=== PATIENT | female | born 1940 ===

== ENCOUNTER 2018-06-09 16:50 | Emergency (ER) | payer MEDICARE ==
[2018-06-09 16:50] VITALS: BMI 24.0
[2018-06-09 17:35] VITALS: TEMP 98.2; O2SAT 100
--- NOTE | 2018-06-09 19:02 | ED PDOC ---
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 She reports associated pain and swelling when ambulating. Otherwise: (-) ankle injury, (-) medication for relief, (-) calf pain, (-) shortness of breath, (-) cough, (-) chest pain, (-) fever, (-) chills , or (-) recent falls. PMD: Dr. Mann Past Medical History Reviewed: Historical Data, Nursing Documentation, Vital Signs Vital Signs: Last Vital Signs Temp 98.2 F 06/09/18 17:33 Pulse 76 06/09/18 17:33 Resp 18 06/09/18 17:33 BP 172/73 H 06/09/18 17:33 Pulse Ox 100 06/09/18 17:33 - Medical History PMH: CAD, Diabetes, HTN, Hypercholesterolemia Other PMH: PR - Surgical History Surgical History: Cholecystectomy Other surgeries: quadruple bypass - Family History Family History: States: Unknown Family Hx - Home Medications Home Medications: Ambulatory Orders Medication Instructions Recorded Aspirin 325 mg PO DAILY tab 11/25/16 Atorvastatin [Lipitor] 80 mg PO DAILY tab 11/25/16 Famotidine [Pepcid] 20 mg PO BID tab 11/25/16 GlipiZIDE SR [Glucotrol XL] 10 mg PO BRK tab 11/25/16 Insulin Detemir [Levemir] 6 units SC HS vial 11/25/16 Metoprolol Tartrate [Lopressor] 50 mg PO DAILY tab 11/25/16 Valsartan [Diovan] 320 mg PO DAILY tab 11/25/16 hydroCHLOROthiazide [Microzide] 12.5 mg PO DAILY cap 11/25/16 Acetaminophen [Acetaminophen 8 650 mg PO Q8 PRN #21 tablet.er 06/09/18 Hour] - Allergies Allergies/Adverse Reactions: Allergies Allergy/AdvReac Type Severity Reaction Status Date / Time iodine Allergy RASH Verified 06/09/18 17:33 Review of Systems ROS Statement: Except As Marked, All Systems Reviewed And Found Negative Constitutional: Negative for: Fever, Chills Cardiovascular: Negative for: Chest Pain Respiratory: Negative for: Cough, Shortness of Breath Musculoskeletal: Positive for: Foot Pain (left ankle with swelling). Negative for: Other (calf pain) Physical Exam - Reviewed Nursing Documentation Reviewed: Yes Vital Signs Reviewed: Yes - Physical Exam Comments: GENERAL APPEARANCE: Patient is awake, alert, oriented x 3, in no acute distress. SKIN: Warm, dry; (-) cyanosis. NECK: Supple, FROM LOWER EXTREMITY: effusion and tenderness of the lateral malleolus; (+) limited range of motion secondary to pain. (-) warmth (-) skin break (-) ecchymosis (-) erythema. Achilles tendon intact and nontender. (-) calf tenderness or (-) palpable cord. Sensation intact throughout. (-) distal NV deficit. CHEST AND RESPIRATORY: (-) rales, (-) rhonchi, (-) wheezes; breath sounds equal bilaterally. Respirations even and nonlabored. HEART AND CARDIOVASCULAR: (-) irregularity NEURO: Mental status as above. Speech clear, gait steady. (-) facial asymmetry ( -) aphasia - ECG O2 Sat by Pulse Oximetry: 100 (RA) Pulse Ox Interpretation: Normal Medical Decision Making Medical Decision Making: Initial Impression: Acute ankle pain and swelling Initial Plan: * Tylenol 650mg PO * XR ankle (left) * Re-evaluation Time: 1932 --XR left ankle interpreted by provider: osteoarthritis Patient notified A Radiologist will review the ED reading if any change in treatment is needed we will contact her. --Podiatry consult ordered. Time: 1957 --Discussed case with podiatry resident, Dr. Duane Sifuentes. He is agreeable to bedside evaluation. 2134 Per podiatry evaluation, patient to be discharged with follow up with Dr Walter and Dr Izaguirre in office. See consult note. Diagnosis per podiatry: PAD/ claudification pain. Repeat BP: 154/78 On re-evaluation, patient reports improvement of symptoms. On exam, patient remains AAOx3, in no acute distress. Neck is supple, lungs CTA, cardiac RRR, neuro exam shows no focal findings. VSS, stable for discharge. RICE encouraged. Diagnostic results d/w the patient in great detail. Dx of lower extremity pain, claudification d/w the patient. Based on history, exam and diagnostic results plan will be for discharge and outpatient follow up as directed. Advised to follow up with primary care physician / referred providers in 1-2 days without fail. Advised to take medication as prescribed. Return to the emergency room at any time for any new or worsening symptoms. Patient states she fully agrees with and understands discharge instructions. States that she agrees with the plan and disposition. Verbalized and repeated discharge instructions and plan. I have given the patient opportunity to ask any additional questions. Scribe Attestation: Documented by Venus Zavala, acting as a scribe for Melisa Nagel PA-C. Provider Scribe Attestation: All medical record entries made by the Scribe were at my direction and personally dictated by me. I have reviewed the chart and agree that the record accurately reflects my personal performance of the history, physical exam, medical decision making, and the department course for this patient. I have also personally directed, reviewed, and agree with the discharge instructions and disposition. Disposition - Clinical Impression Clinical Impression: Peripheral arterial disease, Lower extremity pain - Patient ED Disposition Is Patient to be Admitted: No Counseled Patient/Family Regarding: Studies Performed, Diagnosis, Need For Followup, Rx Given - Disposition Referrals: Gwyn Izaguirre MD [Staff Provider] - Matias Walter MD [Staff Provider] - Disposition: Routine/Home Disposition Time: 21:36 Condition: STABLE Additional Instructions: La atencin mdica de emergencia que recibi hoy estaba dirigida a juani sntomas agudos. Si le prescribieron algn medicamento, llnelo y tome segn las indicaciones. Juani sntomas pueden tardar varios doan en resolverse. Regrese al Departamento de Emergencia si juani sntomas empeoran, no mejoran o si tiene alg n otro problema. Comunquese con [place]ford mdico en 2 doan para nanci reevaluacin y seguimiento / o llame a salbador de los mdicos / clnicas a los que paul referido y que figura en el formulario de Informacin de visitas del paciente que se incluye en radford paquete de angel. Traiga todos los documentos que recibi al momento del angel junto con los medicamentos que est tomando en radford visita de seguimiento. Nuestro tratamiento no puede reemplazar la atencin mdica en curso por parte de un proveedor de atencin primaria (PCP) fuera del departamento de emergencias. Prescriptions: Acetaminophen [Acetaminophen 8 Hour] 650 mg PO Q8 PRN #21 tablet.er PRN Reason: Pain, Moderate (4-7) Instructions: Peripheral Artery Disease and Claudication, Peripheral Vascular ( Arterial) Disease (DC), Muscle and Bone Pain (DC) Forms: [employer] (Portuguese) Print Language: MALAWIAN - POA Present On Arrival: None
--- NOTE | 2018-06-09 20:36 | CP.PCM.CON ---
History of Present Illness - History of Present Illness History of Present Illness: Podiatry consult notes for attending Dr. Izaguirre: 77 y/o F patient with PMH of Coronary heart disease, DM and HTN seen and evaluated in the ED for pain in her left leg. Patient is AAO X 3 and setting comfortably in her chair.Patient states that the pain started 3 days ago. She states that the pain is in the back of her left leg and it goes all the way down. She states that the pain is cramping pain. Patient states that the pain increases when she walks more than one block. She states that the pain when it' s present 8/10 on VAS scale. Patient states that the pain is releived partially by rest. Patient denies any other pedal complaint at this time. Patient denies any recent F/N/V/C or SOB. PMH: Coronary heart disease, DM and HTN PSH: CABG. Allergies: Iodine. Social Hx: Denies smoking, ETOH use or illicit drug use. Review of Systems - Review of Systems Review of Systems: As per HPI. Past Patient History - Past Medical History & Family History Past Medical History?: Yes - Past Social History Smoking Status: Never Smoked - CARDIAC Hx Hypercholesterolemia: Yes Hx Hypertension: Yes - PULMONARY Hx Respiratory Disorders: Yes - NEUROLOGICAL Hx Neurological Disorder: No - HEENT Hx HEENT Problems: No - RENAL Hx Chronic Kidney Disease: No - ENDOCRINE/METABOLIC Hx Diabetes Mellitus Type 2: Yes - HEMATOLOGICAL/ONCOLOGICAL Hx Blood Disorders: No - INTEGUMENTARY Hx Dermatological Problems: No - MUSCULOSKELETAL/RHEUMATOLOGICAL Hx Musculoskeletal Disorders: No Hx Falls: No - GASTROINTESTINAL Hx Gastrointestinal Disorders: No - GENITOURINARY/GYNECOLOGICAL Hx Genitourinary Disorders: No - PSYCHIATRIC Hx Psychophysiologic Disorder: No Hx Substance Use: No - SURGICAL HISTORY Hx Cholecystectomy: Yes - ANESTHESIA Hx Anesthesia: Yes Hx Anesthesia Reactions: No Meds Allergies/Adverse Reactions: Allergies Allergy/AdvReac Type Severity Reaction Status Date / Time iodine Allergy RASH Verified 06/09/18 17:33 Physical Exam - Constitutional Appears: Well, Non-toxic, No Acute Distress - Head Exam Head Exam: ATRAUMATIC, NORMOCEPHALIC - Extremities Exam Additional comments: LE focused exam: Vasc: DP/PT faintly palpable 1/4 b/l. Cap refill delayed about 4 sec. toes looks reddish in color. Lateral malleolar edema noted b/l. Neuro: Gross and protective sesations are intact b/l. Derm: No open lesions, No clinical signs of active infection. B/L hallucal toe nails are dystrophic, discolored and thickened. MSK: Muscle power intact 5/5 in all groups b/l. Foot and ankle ROM are WNL b/l. pain on Squeezing the calf muscles b/l. - Neurological Exam Neurological exam: Alert, Oriented x3 - Psychiatric Exam Psychiatric exam: Normal Affect, Normal Mood Results - Vital Signs Recent Vital Signs: Last Vital Signs Temp 98.2 F 06/09/18 17:33 Pulse 76 06/09/18 17:33 Resp 18 06/09/18 17:33 BP 172/73 H 06/09/18 17:33 Pulse Ox 100 06/09/18 20:00 Assessment & Plan - Assessment and Plan (Free Text) Assessment: 77 Y/O F patient seen and evaluated in the ED for pain and claudications of the left leg Plan: Patient seen and evaluated in the ED. Plan discussed in details with attending Dr. Izaguirre. X-ray reviewed; No apparent osseous anomalies. Discussed with the patient that her problem is mainly vascular as she might has a problem in her blood flow to the LE. Discussed with the patient that she needs to F/U with vascular doctor. Patient advised to keep her legs in more dependent position to improve the blood flow to it. Patient referred to Dr. Trupti Walter for vascular evaluation and F/U. Patient advised to Check her feet every year as she is a diabetic. Patient expressed verbal understanding. Thank you for consulting podiatry service. - Date & Time Date: 06/09/18 Time: 20:35
[2018-06-09 21:44] VITALS: BP 154/78; PULSE 80; RESP 16
--- NOTE | 2018-06-10 08:53 | RAD ---
Date of service: 06/09/2018 PROCEDURE: Left Ankle Radiographs. HISTORY: joint pain/swelling (-) trauma COMPARISON: None FINDINGS: BONES: No acute fracture or destructive bony lesion identified. Old healed left 5th metatarsal diaphysis fracture not excluded. There is a likely accessory ossicle inferior to the medial malleolus bone old avulsion or chip fracture is not excluded either. JOINTS: Articular cortical sclerosis at the tibiotalar joint seen best in the lateral view with minimal anterior spurring prior of degenerative joint disease appears similar changes are present at the tarsal tarsal joints. Ankle mortise maintained. Talar dome intact SOFT TISSUES: There is a large plantar calcaneal spur identified. Mild anterior and lateral malleolar soft tissue edema identified. OTHER FINDINGS: None. IMPRESSION: No acute fracture or dislocation. Probable old healed fracture 5th metatarsal bone. Though degenerative changes midfoot hindfoot articulations. Large plantar calcaneal spur noted.
== END 2018-06-09 21:53 | disposition home or self-care (01) ==
LOC: H.ER 16:50
DX: I73.9 Peripheral vascular disease, unspecified (principal); E11.51 Type 2 diabetes mellitus with diabetic peripheral angiopathy without gangrene; Z79.4 Long term (current) use of insulin; Z95.1 Presence of aortocoronary bypass graft

== ENCOUNTER 2018-10-21 15:27 | Inpatient (IN) | payer MEDICARE ==
[2018-10-21 15:44] VITALS: BMI 27.1
[2018-10-21] MEDS ORDERED: Sodium Chloride 0.9% 1,000 ML IV STA (16:02)
--- NOTE | 2018-10-21 16:07 | ED PDOC ---
Syncope/Near Syncope/Dizziness Time Seen by Provider: 10/21/18 15:53 Chief Complaint (Nursing): Syncope Chief Complaint (Provider): Syncope History Per: Patient History/Exam Limitations: no limitations Onset/Duration Of Symptoms: Days (x 2) Number Of Syncopal Episodes: >3 (4) Associated Symptoms Preceding Syncopal Episode: Lightheadedness Additional Complaint(s): 78 year old female with a history of CAD s/p CABG, DM, HTN and hypercholesteremi a with four syncopal episodes in the last two days. All episodes were preceded by lightheadedness. Caregiver witnessed last episode and reports she slept for four hours afterwards. Denies headache, chest pain, palpitations, focal weakness and fever. PMD: Dr. Bassam Mann Past Medical History Reviewed: Historical Data, Nursing Documentation, Vital Signs Vital Signs: Last Vital Signs Temp 98.4 F 10/21/18 15:41 Pulse 69 10/21/18 15:41 Resp 16 10/21/18 15:41 BP 150/63 10/21/18 15:41 Pulse Ox 99 10/21/18 15:41 - Medical History PMH: CAD, Diabetes, HTN, Hypercholesterolemia Denies: Chronic Kidney Disease - Surgical History Surgical History: CABG, Cholecystectomy - Family History Family History: States: Unknown Family Hx - Home Medications Home Medications: Ambulatory Orders Medication Instructions Recorded Aspirin 325 mg PO DAILY tab 11/25/16 Atorvastatin [Lipitor] 80 mg PO DAILY tab 11/25/16 Famotidine [Pepcid] 20 mg PO BID tab 11/25/16 GlipiZIDE SR [Glucotrol XL] 10 mg PO BRK tab 11/25/16 Insulin Detemir [Levemir] 6 units SC HS vial 11/25/16 Metoprolol Tartrate [Lopressor] 50 mg PO DAILY tab 11/25/16 Valsartan [Diovan] 320 mg PO DAILY tab 11/25/16 hydroCHLOROthiazide [Microzide] 12.5 mg PO DAILY cap 11/25/16 Acetaminophen [Acetaminophen 8 650 mg PO Q8 PRN #21 tablet.er 06/09/18 Hour] - Allergies Allergies/Adverse Reactions: Allergies Allergy/AdvReac Type Severity Reaction Status Date / Time iodine Allergy RASH Verified 10/21/18 15:50 Review of Systems ROS Statement: Except As Marked, All Systems Reviewed And Found Negative Constitutional: Positive for: Other (4 syncopal episodes). Negative for: Fever, Weakness Cardiovascular: Negative for: Chest Pain, Palpitations Neurological: Negative for: Headache Physical Exam - Reviewed Nursing Documentation Reviewed: Yes Vital Signs Reviewed: Yes - Physical Exam Appears: Positive for: Non-toxic, No Acute Distress Head Exam: Positive for: ATRAUMATIC, NORMAL INSPECTION, NORMOCEPHALIC Skin: Positive for: Normal Color, Warm, Dry. Negative for: Rash Eye Exam: Positive for: EOMI, Normal appearance, PERRL Neck: Positive for: Normal, Painless ROM, Supple Cardiovascular/Chest: Positive for: Regular Rate, Rhythm. Negative for: Murmur Respiratory: Positive for: Normal Breath Sounds. Negative for: Respiratory Distress Gastrointestinal/Abdominal: Positive for: Normal Exam, Soft. Negative for: Tenderness Back: Positive for: Normal Inspection. Negative for: L CVA Tenderness, R CVA Tenderness Extremity: Positive for: Normal ROM (x 4). Negative for: Deformity Neurologic/Psych: Positive for: Alert, registration rep II-XII (intact), Oriented (x 3), Cerebellar Tests (negative), Gait (steady). Negative for: Motor/Sensory Deficits, Facial Droop - Laboratory Results Result Diagrams: 10/21/18 18:05 - ECG O2 Sat by Pulse Oximetry: 99 (RA) Pulse Ox Interpretation: Normal Medical Decision Making Medical Decision Makin:01 MDM: syncope given history of CAD and CABG will consider cardiac arrhythmia and OK Will obtain troponins, blood work and CT head Orders: --CT Head --CBC --CMP --Troponin --urine dip --EKG --Glucose POC --NS IV 16:59 CT Head FINDINGS: HEMORRHAGE: No intracranial hemorrhage. BRAIN: No mass effect or edema. No atrophy or chronic microvascular ischemic changes. VENTRICLES: Unremarkable. No hydrocephalus. CALVARIUM: Unremarkable. PARANASAL SINUSES: Unremarkable as visualized. No significant inflammatory changes. MASTOID AIR CELLS: Unremarkable as visualized. No inflammatory changes. OTHER FINDINGS: None. IMPRESSION: No evidence of acute intracranial hemorrhage mass effect or midline shift. -------- --------- Scribe Attestation: Documented by Billie Daigle acting as a scribe for Peter Kearney MD Provider Scribe Attestation: All medical record entries made by the Scribe were at my direction and personally dictated by me. I have reviewed the chart and agree that the record accurately reflects my personal performance of the history, physical exam, medical decision making, and the department course for this patient. I have also personally directed, reviewed, and agree with the discharge instructions and disposition. Disposition - Clinical Impression Clinical Impression: Syncope - Patient ED Disposition Is Patient to be Admitted: Yes - Disposition Disposition Time: 18:26 Condition: FAIR Forms: [employer] (Belarusian) - Pt Status Changed To: Hospital Disposition Of: Observation - POA Present On Arrival: None
--- NOTE | 2018-10-21 17:02 | CT ---
Date of service: 10/21/2018 PROCEDURE: CT HEAD WITHOUT CONTRAST. HISTORY: r/o bleed COMPARISON: Comparison is made with 11/23/2016 TECHNIQUE: Axial computed tomography images were obtained through the head/brain without intravenous contrast. Radiation dose: Total exam DLP = 873.52 mGy-cm. This CT exam was performed using one or more of the following dose reduction techniques: Automated exposure control, adjustment of the mA and/or kV according to patient size, and/or use of iterative reconstruction technique. FINDINGS: HEMORRHAGE: No intracranial hemorrhage. BRAIN: No mass effect or edema. No atrophy or chronic microvascular ischemic changes. VENTRICLES: Unremarkable. No hydrocephalus. CALVARIUM: Unremarkable. PARANASAL SINUSES: Unremarkable as visualized. No significant inflammatory changes. MASTOID AIR CELLS: Unremarkable as visualized. No inflammatory changes. OTHER FINDINGS: None. IMPRESSION: No evidence of acute intracranial hemorrhage mass effect or midline shift.
[2018-10-21 18:16] LABS: BASO # 0.1 K/uL (0.0-0.2); BASO % 1.1 % (0.0-2.0); EOS # 0.4 K/uL (0.0-0.7); EOS % 5.4 % (0.0-4.0); HEMOGLOBIN 13.2 g/dL (12.0-16.0); LYMPH # 2.4 K/uL (1.0-4.3); LYMPH % 32.7 % (20.0-40.0); MEAN CELL VOLUME 87.2 fl (81.0-99.0); MEAN CORPUSCULAR HGB CONC 34.4 g/dL (33.0-37.0); MEAN PLATELET VOLUME 8.1 fl (7.2-11.7); MONO # 0.5 K/uL (0.0-0.8); MONO % 6.6 % (0.0-10.0); NEUT % 54.2 % (50.0-75.0); RBC 4.41 Mil/uL (3.80-5.20); RED CELL DISTRIBUTION WIDTH 13.8 % (11.5-14.5); WHITE BLOOD COUNT 7.3 K/uL (4.8-10.8)
[2018-10-21 18:27] LABS: ALB/GLOB RATIO 1.4 (1.0-2.1); ALBUMIN 4.5 g/dL (3.5-5.0); BLOOD UREA NITROGEN 33 mg/dl (7-17); CALCIUM 10.7 mg/dL (8.4-10.2); GFR NON-AFRICAN AMERICAN 54
[2018-10-21 18:29] LABS: ALT/SGPT 24 U/L (9-52); AST/SGOT 34 U/L (14-36)
[2018-10-21] MEDS ORDERED: ACETAMINOPHEN 650 MG PO PRN (23:33)
[2018-10-22] MEDS ORDERED: Morphine 4 MG/ML VIAL IVP PRN (06:35)
[2018-10-22] MEDS ORDERED: Acetaminophen-Codeine 300/30 mg Tab PO PRN (06:35)
[2018-10-22] MEDS: Insulin Regular 100 units/ml SC SCH ×3 (06:55→16:57)
[2018-10-22 07:33] LABS: HEMOGLOBIN 12.5 g/dL (12.0-16.0); MEAN CELL VOLUME 86.7 fl (81.0-99.0); MEAN CORPUSCULAR HEMOGLOBIN 29.7 pg (27.0-31.0); MEAN CORPUSCULAR HGB CONC 34.3 g/dL (33.0-37.0); RBC 4.2 Mil/uL (3.80-5.20); RED CELL DISTRIBUTION WIDTH 14.1 % (11.5-14.5)
[2018-10-22 07:54] LABS: ALB/GLOB RATIO 1.5 (1.0-2.1); ALT/SGPT 28 U/L (9-52); AST/SGOT 28 U/L (14-36); BLOOD UREA NITROGEN 27 mg/dl (7-17); GFR NON-AFRICAN AMERICAN 54
--- NOTE | 2018-10-22 09:17 | CP.PCM.CON ---
History of Present Illness - History of Present Illness History of Present Illness: I was asked to see patient by Dr Dale patient was seen 10/22/17 0810 Patient is a 78 year old female with HTn, CAD s/p CABg who presents with syncope. She has noted dizziness and lighheadedness no troponin elevation thus far. recommend neuro work up. echo Past Patient History - Past Medical History & Family History Past Medical History?: Yes - Past Social History Smoking Status: Never Smoked - CARDIAC Hx Cardiac Disorders: Yes - PULMONARY Hx Respiratory Disorders: Yes - NEUROLOGICAL Hx Neurological Disorder: No - HEENT Hx HEENT Problems: No - RENAL Hx Chronic Kidney Disease: No - ENDOCRINE/METABOLIC Hx Diabetes Mellitus Type 2: Yes (CONTROLLED ON METFORMIN) - HEMATOLOGICAL/ONCOLOGICAL Hx Blood Disorders: No - INTEGUMENTARY Hx Dermatological Problems: No - MUSCULOSKELETAL/RHEUMATOLOGICAL Hx Musculoskeletal Disorders: No Hx Falls: No - GASTROINTESTINAL Hx Gastrointestinal Disorders: No - GENITOURINARY/GYNECOLOGICAL Hx Genitourinary Disorders: No - PSYCHIATRIC Hx Psychophysiologic Disorder: No Hx Substance Use: No - SURGICAL HISTORY Hx Cholecystectomy: Yes Hx Coronary Artery Bypass Graft: Yes - ANESTHESIA Hx Anesthesia: Yes Hx Anesthesia Reactions: No Meds Allergies/Adverse Reactions: Allergies Allergy/AdvReac Type Severity Reaction Status Date / Time iodine Allergy RASH Verified 10/21/18 15:50 - Medications Medications: Current Medications Acetaminophen (Tylenol 325mg Tab) 650 mg PO Q4 PRN PRN Reason: Pain, moderate (4-7) Acetaminophen (Tylenol 325mg Tab) 650 mg PO Q6 PRN PRN Reason: Pain, Mild (1-3) Acetaminophen/Codeine Phosphate (Tylenol/Codeine 300 Mg/30 Mg) 1 tab PO Q8 PRN PRN Reason: Pain, moderate (4-7) Aspirin (Aspirin) 325 mg PO DAILY [facility] Last Admin: 10/22/18 08:42 Dose: 325 mg Atorvastatin Calcium (Lipitor) 80 mg PO DAILY [facility] Last Admin: 10/22/18 08:39 Dose: 80 mg Famotidine (Pepcid) 20 mg PO BID [facility] Last Admin: 10/22/18 08:39 Dose: 20 mg Hydrochlorothiazide (Microzide) 12.5 mg PO DAILY [facility] Last Admin: 10/22/18 08:39 Dose: 12.5 mg Insulin Detemir (Levemir) 6 units SC [facility] Insulin Human Regular (Humulin R) 0 units SC ACHS [facility]; Protocol Last Admin: 10/22/18 06:55 Dose: Not Given Losartan Potassium (Cozaar) 100 mg PO DAILY [facility] Metoprolol Tartrate (Lopressor) 50 mg PO DAILY [facility] Last Admin: 10/22/18 08:42 Dose: 50 mg Morphine Sulfate (Morphine) 2 mg IVP Q6 PRN PRN Reason: Pain, severe (8-10) Valsartan (Diovan) 320 mg PO DAILY [facility] Results - Vital Signs Recent Vital Signs: Last Vital Signs Temp 98.0 F 10/22/18 07:41 Pulse 65 10/22/18 08:42 Resp 18 10/22/18 07:41 BP 181/66 H 10/22/18 08:42 Pulse Ox 99 10/22/18 07:41 - Labs Result Diagrams: 10/22/18 06:15 10/22/18 06:15 Labs: Laboratory Results - last 24 hr 10/21/18 10/21/18 10/21/18 15:50 18:05 18:05 WBC 7.3 RBC 4.41 Hgb 13.2 Hct 38.5 MCV 87.2 MCH 30.0 MCHC 34.4 RDW 13.8 Plt Count 265 MPV 8.1 Neut % (Auto) 54.2 Lymph % (Auto) 32.7 [place] % (Auto) 6.6 Eos % (Auto) 5.4 H Baso % (Auto) 1.1 Neut # (Auto) 4.0 Lymph # (Auto) 2.4 [place] # (Auto) 0.5 Eos # (Auto) 0.4 Baso # (Auto) 0.1 Sodium 140 Potassium 3.9 Chloride 99 Carbon Dioxide 30 Anion Gap 15 BUN 33 H Creatinine 1.0 Est GFR ( Amer) > 60 Est GFR (Non-Af Amer) 54 POC Glucose (mg/dL) 87 Random Glucose 56 L Calcium 10.7 H Total Bilirubin 0.5 AST 34 ALT 24 Alkaline Phosphatase 70 Troponin I < 0.0120 Total Protein 7.7 Albumin 4.5 Globulin 3.2 Albumin/Globulin Ratio 1.4 10/21/18 10/22/18 10/22/18 23:00 00:09 05:43 WBC RBC Hgb Hct MCV MCH MCHC RDW Plt Count MPV Neut % (Auto) Lymph % (Auto) [place] % (Auto) Eos % (Auto) Baso % (Auto) Neut # (Auto) Lymph # (Auto) [place] # (Auto) Eos # (Auto) Baso # (Auto) Sodium Potassium Chloride Carbon Dioxide Anion Gap BUN Creatinine Est GFR ( Amer) Est GFR (Non-Af Amer) POC Glucose (mg/dL) 48 L 99 43 L Random Glucose Calcium Total Bilirubin AST ALT Alkaline Phosphatase Troponin I Total Protein Albumin Globulin Albumin/Globulin Ratio 10/22/18 10/22/18 10/22/18 05:46 06:15 06:15 WBC 6.0 RBC 4.20 Hgb 12.5 Hct 36.4 MCV 86.7 MCH 29.7 MCHC 34.3 RDW 14.1 Plt Count 229 MPV Neut % (Auto) Lymph % (Auto) [place] % (Auto) Eos % (Auto) Baso % (Auto) Neut # (Auto) Lymph # (Auto) [place] # (Auto) Eos # (Auto) Baso # (Auto) Sodium 140 Potassium 3.4 L Chloride 94 L Carbon Dioxide 32 H Anion Gap 17 BUN 27 H Creatinine 1.0 Est GFR ( Amer) > 60 Est GFR (Non-Af Amer) 54 POC Glucose (mg/dL) 55 L Random Glucose 160 H Calcium 10.0 Total Bilirubin 0.5 AST 28 ALT 28 Alkaline Phosphatase 67 Troponin I < 0.0120 Total Protein 6.8 Albumin 4.0 Globulin 2.8 Albumin/Globulin Ratio 1.5 10/22/18 06:34 WBC RBC Hgb Hct MCV MCH MCHC RDW Plt Count MPV Neut % (Auto) Lymph % (Auto) [place] % (Auto) Eos % (Auto) Baso % (Auto) Neut # (Auto) Lymph # (Auto) [place] # (Auto) Eos # (Auto) Baso # (Auto) Sodium Potassium Chloride Carbon Dioxide Anion Gap BUN Creatinine Est GFR ( Amer) Est GFR (Non-Af Amer) POC Glucose (mg/dL) 134 H Random Glucose Calcium Total Bilirubin AST ALT Alkaline Phosphatase Troponin I Total Protein Albumin Globulin Albumin/Globulin Ratio
--- NOTE | 2018-10-22 09:17 | CP.PCM.CON ---
History of Present Illness - History of Present Illness History of Present Illness: I was asked to see patient by Dr Dale patient was seen 10/22/17 [id number] I was asked to evaluate patient by Dr Dale. Patient is a 78 year old female with CAD s/p CABG, HTN, hypercholesterolemia who presents with dizziness. The patient states symptoms began gradually over the last week. She developed progressive lighheadedness and syncope. She denies chest pain or palpitiatons. Review of Systems - Constitutional Constitutional: absent: As Per HPI, Anorexia, Chills, Daytime Sleepiness, Excessive Sweating, Fatigue, Fever, Frequent Falls, Headache, Increased Appetite, Lethargy, Malaise, Night Sweats, Snoring, Sleep Apnea, Weight Gain, Weight Loss, Weakness, Other - EENT Eyes: absent: As Per HPI, Blind Spots, Blurred Vision, Change in Vision, Decreased Night Vision, Diplopia, Discharge, Dry Eye, Exophthalmos, Floaters, Irritation, Itchy Eyes, Loss of Peripheral Vision, Pain, Photophobia, Requires Corrective Lenses, Sees Flashes, Spots in Vision, Tunnel Vision, Other Visual Disturbances, Loss of Vision, Other Ears: absent: As Per HPI, Decreased Hearing, Ear Discharge, Ear Pain, Tinnitus, Abnormal Hearing, Disequilibrium, Dizziness, Other Nose/Mouth/Throat: absent: As Per HPI, Epistaxis, Nasal Congestion, Nasal Discharge, Nasal Obstruction, Nasal Trauma, Nose Pain, Post Nasal Drip, Sinus Pain, Sinus Pressure, Bleeding Gums, Change in Voice, Dental Pain, Dry Mouth, Dysphagia, Halitosis, Hoarsness, Lip Swelling, Mouth Lesions, Mouth Pain, Odynophagia, Sore Throat, Throat Swelling, Tongue Swelling, Facial Pain, Neck Pain, Neck Mass, Other - Cardiovascular Cardiovascular: Syncope - Respiratory Respiratory: absent: As Per HPI, Cough, Dyspnea, Hemoptysis, Dyspnea on Exerti on, Wheezing, Snoring, Stridor, Pain on Inspiration, Chest Congestion, Excessive Mucous Production, Change in Mucous Color, Pain with Coughing, Other - Gastrointestinal Gastrointestinal: absent: As Per HPI, Abdominal Pain, Belching, Bloating, Change in Bowel Habits, Change in Stool Character, Coffee Ground Emesis, Constipation, Cramping, Diarrhea, Dyspepsia, Dysphagia, Early Satiety, Excessive Flatus, Fecal Incontinence, Heartburn, Hematemesis, Hematochezia, Loose Stools, Melena, Nausea, Odynophagia, Temesmus, Vomiting, Other - Musculoskeletal Musculoskeletal: absent: As Per HPI, Abnormal Gait, Arthralgias, Atrophy, Back Pain, Deformity, Joint Swelling, Limited Range of Motion, Loss of Height, Muscle Cramps, Muscle Weakness, Myalgias, Neck Pain, Numbness, Radiating Pain into Limb, Stiffness, Tingling, Other - Integumentary Integumentary: absent: As Per HPI, Acne, Alopecia, Bleeding Lesions, Change in Hair, Change in Nails, Change in Pigmentation, Changing Lesions, Dry Skin, Erythema, Furuncle, Hirsutism, Lesions, New Lesions, Non-Healing Lesions, Photosensitivity, Pruritus, Rash, Skin Pain, Skin Ulcer, Sores, Striae, Swelling, Unusual Bruising, Wounds, Jaundice, Other - Neurological Neurological: absent: As Per HPI, Abnormal Gait, Abnormal Hearing, Abnormal Movements, Abnormal Speech, Behavioral Changes, Burning Sensations, Confusion, Convulsions, Disequilibrium, Dizziness, Numbness, Focal Weakness, Frequent Falls, Headaches, Lack of Coordination, Loss of Vision, Memory Loss, Paresthesias, Radicular Pain, Restless Legs, Sensory Deficit, Syncope, Tingling, Tremor, Vertigo, Weakness, Other Visual Disturbances, Other - Psychiatric Psychiatric: absent: As Per HPI, Abnormal Sleep Pattern, Anhedonia, Anxiety, Auditory Hallucinations, Behavioral Changes, Change in Appetite, Change in Libido, Confusion, Depression, Difficulty Concentrating, Hallucinations, Homicidal Ideation, Hopelessness, Irritability, Memory Loss, Mood Swings, Panic Attacks, Paranoia, Suicidal Ideation, Visual Hallucinations, Tactile Hallucinations, Other - Endocrine Endocrine: absent: As Per HPI, Change in Body Appearance, Change in Libido, Cold Intolorance, Deepening of Voice, Excessive Sweating, Fatigue, Flushing, Heat Intolorance, Increase in Ring/Shoe/Hat Size, Palpitations, Polydipsia, Polyphagia, Polyuria, Other - Hematologic/Lymphatic Hematologic: absent: As Per HPI, Easy Bleeding, Easy Bruising, Lymphadenopathy, Other Past Patient History - Past Medical History & Family History Past Medical History?: Yes - Past Social History Smoking Status: Never Smoked - CARDIAC Hx Cardiac Disorders: Yes - PULMONARY Hx Respiratory Disorders: Yes - NEUROLOGICAL Hx Neurological Disorder: No - HEENT Hx HEENT Problems: No - RENAL Hx Chronic Kidney Disease: No - ENDOCRINE/METABOLIC Hx Diabetes Mellitus Type 2: Yes (CONTROLLED ON METFORMIN) - HEMATOLOGICAL/ONCOLOGICAL Hx Blood Disorders: No - INTEGUMENTARY Hx Dermatological Problems: No - MUSCULOSKELETAL/RHEUMATOLOGICAL Hx Musculoskeletal Disorders: No Hx Falls: No - GASTROINTESTINAL Hx Gastrointestinal Disorders: No - GENITOURINARY/GYNECOLOGICAL Hx Genitourinary Disorders: No - PSYCHIATRIC Hx Psychophysiologic Disorder: No Hx Substance Use: No - SURGICAL HISTORY Hx Cholecystectomy: Yes Hx Coronary Artery Bypass Graft: Yes - ANESTHESIA Hx Anesthesia: Yes Hx Anesthesia Reactions: No Meds Allergies/Adverse Reactions: Allergies Allergy/AdvReac Type Severity Reaction Status Date / Time iodine Allergy RASH Verified 10/21/18 15:50 - Medications Medications: Current Medications Acetaminophen (Tylenol 325mg Tab) 650 mg PO Q4 PRN PRN Reason: Pain, moderate (4-7) Acetaminophen (Tylenol 325mg Tab) 650 mg PO Q6 PRN PRN Reason: Pain, Mild (1-3) Acetaminophen/Codeine Phosphate (Tylenol/Codeine 300 Mg/30 Mg) 1 tab PO Q8 PRN PRN Reason: Pain, moderate (4-7) Aspirin (Aspirin) 325 mg PO DAILY [facility] Last Admin: 10/22/18 08:42 Dose: 325 mg Atorvastatin Calcium (Lipitor) 80 mg PO DAILY [facility] Last Admin: 10/22/18 08:39 Dose: 80 mg Famotidine (Pepcid) 20 mg PO BID [facility] Last Admin: 10/22/18 08:39 Dose: 20 mg Hydrochlorothiazide (Microzide) 12.5 mg PO DAILY [facility] Last Admin: 10/22/18 08:39 Dose: 12.5 mg Insulin Detemir (Levemir) 6 units SC [facility] Insulin Human Regular (Humulin R) 0 units SC [facility]; Protocol Last Admin: 10/22/18 06:55 Dose: Not Given Losartan Potassium (Cozaar) 100 mg PO DAILY [facility] Metoprolol Tartrate (Lopressor) 50 mg PO DAILY [facility] Last Admin: 10/22/18 08:42 Dose: 50 mg Morphine Sulfate (Morphine) 2 mg IVP Q6 PRN PRN Reason: Pain, severe (8-10) Valsartan (Diovan) 320 mg PO DAILY [facility] Physical Exam - Constitutional Appears: Non-toxic - Head Exam Head Exam: NORMAL INSPECTION - Eye Exam Eye Exam: Normal appearance - ENT Exam ENT Exam: Mucous Membranes Moist - Neck Exam Neck exam: Positive for: Full Rom - Respiratory Exam Respiratory Exam: NORMAL BREATHING PATTERN - Cardiovascular Exam Cardiovascular Exam: REGULAR RHYTHM - GI/Abdominal Exam GI & Abdominal Exam: Normal Bowel Sounds - Rectal Exam Rectal Exam: Deferred - Extremities Exam Extremities exam: Negative for: pedal edema - Back Exam Back exam: NORMAL INSPECTION - Neurological Exam Neurological exam: Alert, Oriented x3 - Psychiatric Exam Psychiatric exam: Normal Affect - Skin Skin Exam: Normal Color Results - Vital Signs Recent Vital Signs: Last Vital Signs Temp 98.0 F 10/22/18 07:41 Pulse 65 10/22/18 08:42 Resp 18 10/22/18 07:41 BP 181/66 H 10/22/18 08:42 Pulse Ox 99 10/22/18 07:41 - Labs Result Diagrams: 10/23/18 06:45 10/23/18 06:45 Labs: Laboratory Results - last 24 hr 10/21/18 10/21/18 10/21/18 15:50 18:05 18:05 WBC 7.3 RBC 4.41 Hgb 13.2 Hct 38.5 MCV 87.2 MCH 30.0 MCHC 34.4 RDW 13.8 Plt Count 265 MPV 8.1 Neut % (Auto) 54.2 Lymph % (Auto) 32.7 [place] % (Auto) 6.6 Eos % (Auto) 5.4 H Baso % (Auto) 1.1 Neut # (Auto) 4.0 Lymph # (Auto) 2.4 [place] # (Auto) 0.5 Eos # (Auto) 0.4 Baso # (Auto) 0.1 Sodium 140 Potassium 3.9 Chloride 99 Carbon Dioxide 30 Anion Gap 15 BUN 33 H Creatinine 1.0 Est GFR ( Amer) > 60 Est GFR (Non-Af Amer) 54 POC Glucose (mg/dL) 87 Random Glucose 56 L Calcium 10.7 H Total Bilirubin 0.5 AST 34 ALT 24 Alkaline Phosphatase 70 Troponin I < 0.0120 Total Protein 7.7 Albumin 4.5 Globulin 3.2 Albumin/Globulin Ratio 1.4 10/21/18 10/22/18 10/22/18 23:00 00:09 05:43 WBC RBC Hgb Hct MCV MCH MCHC RDW Plt Count MPV Neut % (Auto) Lymph % (Auto) [place] % (Auto) Eos % (Auto) Baso % (Auto) Neut # (Auto) Lymph # (Auto) [place] # (Auto) Eos # (Auto) Baso # (Auto) Sodium Potassium Chloride Carbon Dioxide Anion Gap BUN Creatinine Est GFR ( Amer) Est GFR (Non-Af Amer) POC Glucose (mg/dL) 48 L 99 43 L Random Glucose Calcium Total Bilirubin AST ALT Alkaline Phosphatase Troponin I Total Protein Albumin Globulin Albumin/Globulin Ratio 10/22/18 10/22/18 10/22/18 05:46 06:15 06:15 WBC 6.0 RBC 4.20 Hgb 12.5 Hct 36.4 MCV 86.7 MCH 29.7 MCHC 34.3 RDW 14.1 Plt Count 229 MPV Neut % (Auto) Lymph % (Auto) [place] % (Auto) Eos % (Auto) Baso % (Auto) Neut # (Auto) Lymph # (Auto) [place] # (Auto) Eos # (Auto) Baso # (Auto) Sodium 140 Potassium 3.4 L Chloride 94 L Carbon Dioxide 32 H Anion Gap 17 BUN 27 H Creatinine 1.0 Est GFR ( Amer) > 60 Est GFR (Non-Af Amer) 54 POC Glucose (mg/dL) 55 L Random Glucose 160 H Calcium 10.0 Total Bilirubin 0.5 AST 28 ALT 28 Alkaline Phosphatase 67 Troponin I < 0.0120 Total Protein 6.8 Albumin 4.0 Globulin 2.8 Albumin/Globulin Ratio 1.5 10/22/18 06:34 WBC RBC Hgb Hct MCV MCH MCHC RDW Plt Count MPV Neut % (Auto) Lymph % (Auto) [place] % (Auto) Eos % (Auto) Baso % (Auto) Neut # (Auto) Lymph # (Auto) [place] # (Auto) Eos # (Auto) Baso # (Auto) Sodium Potassium Chloride Carbon Dioxide Anion Gap BUN Creatinine Est GFR ( Amer) Est GFR (Non-Af Amer) POC Glucose (mg/dL) 134 H Random Glucose Calcium Total Bilirubin AST ALT Alkaline Phosphatase Troponin I Total Protein Albumin Globulin Albumin/Globulin Ratio - EKG Data EKG Interpreted by: Myself EKG shows normal: Sinus rhythm Assessment & Plan (1) Syncope Assessment and Plan: unclear etiology. neuro work up. check echocardiogram Status: Acute (2) DM2 (diabetes mellitus, type 2) Assessment and Plan: glucose control Status: Chronic (3) HTN (hypertension) Assessment and Plan: blood pressure control Status: Chronic
--- NOTE | 2018-10-22 13:11 | CP.PCM.HP ---
History of Present Illness - History of Present Illness History of Present Illness: 78 yo female with PMHx of DM, CAD s/p CABG, HTN, HLD presented to ED with mutiple syncopal episodes x 2 days. Patient admitted for further evaluation of syncope as patient is high risk. Patient seen and examined at bedside. No complaints offered at this time. States no syncopal episodes though lightheadedness at times Denies cp/sob/palpitations/headaches/abdominal pain. Allergies: per chart Meds: per chart Fam hx: non contributory Present on Admission - Present on Admission Any Indicators Present on Admission: No Review of Systems - Review of Systems All systems: reviewed and no additional remarkable complaints except (mentioned above) 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) - HEMATOLOGICAL/ONCOLOGICAL Hx Blood Disorders: No - INTEGUMENTARY Hx Dermatological Problems: No - MUSCULOSKELETAL/RHEUMATOLOGICAL Hx Musculoskeletal Disorders: No Hx Falls: No - GASTROINTESTINAL Hx Gastrointestinal Disorders: No - GENITOURINARY/GYNECOLOGICAL Hx Genitourinary Disorders: No - PSYCHIATRIC Hx Psychophysiologic Disorder: No Hx Substance Use: No - SURGICAL HISTORY Hx Cholecystectomy: Yes Hx Coronary Artery Bypass Graft: Yes - ANESTHESIA Hx Anesthesia: Yes Hx Anesthesia Reactions: No Meds Allergies/Adverse Reactions: Allergies Allergy/AdvReac Type Severity Reaction Status Date / Time iodine Allergy RASH Verified 10/21/18 15:50 Physical Exam - Constitutional Appears: Non-toxic, No Acute Distress - Head Exam Head Exam: NORMAL INSPECTION - Eye Exam Eye Exam: Normal appearance - Neck Exam Neck exam: Positive for: Normal Inspection - Respiratory Exam Respiratory Exam: NORMAL BREATHING PATTERN - Cardiovascular Exam Cardiovascular Exam: +S1, +S2 - GI/Abdominal Exam GI & Abdominal Exam: Soft - Extremities Exam Extremities exam: Positive for: normal inspection - Neurological Exam Neurological exam: Alert, Oriented x3 - Psychiatric Exam Psychiatric exam: Normal Affect, Normal Mood - Skin Skin Exam: Normal Color, Warm Results - Vital Signs Recent Vital Signs: Last Vital Signs Temp 98.3 F 10/22/18 11:49 Pulse 60 10/22/18 12:39 Resp 18 10/22/18 11:49 BP 184/65 H 10/22/18 12:39 Pulse Ox 97 10/22/18 11:49 - Labs Result Diagrams: 10/23/18 06:45 10/23/18 06:45 Labs: Laboratory Results - last 24 hr 10/21/18 10/21/18 10/21/18 15:50 18:05 18:05 WBC 7.3 RBC 4.41 Hgb 13.2 Hct 38.5 MCV 87.2 MCH 30.0 MCHC 34.4 RDW 13.8 Plt Count 265 MPV 8.1 Neut % (Auto) 54.2 Lymph % (Auto) 32.7 [place] % (Auto) 6.6 Eos % (Auto) 5.4 H Baso % (Auto) 1.1 Neut # (Auto) 4.0 Lymph # (Auto) 2.4 [place] # (Auto) 0.5 Eos # (Auto) 0.4 Baso # (Auto) 0.1 Sodium 140 Potassium 3.9 Chloride 99 Carbon Dioxide 30 Anion Gap 15 BUN 33 H Creatinine 1.0 Est GFR ( Amer) > 60 Est GFR (Non-Af Amer) 54 POC Glucose (mg/dL) 87 Random Glucose 56 L Calcium 10.7 H Total Bilirubin 0.5 AST 34 ALT 24 Alkaline Phosphatase 70 Troponin I < 0.0120 Total Protein 7.7 Albumin 4.5 Globulin 3.2 Albumin/Globulin Ratio 1.4 10/21/18 10/22/18 10/22/18 23:00 00:09 05:43 WBC RBC Hgb Hct MCV MCH MCHC RDW Plt Count MPV Neut % (Auto) Lymph % (Auto) [place] % (Auto) Eos % (Auto) Baso % (Auto) Neut # (Auto) Lymph # (Auto) [place] # (Auto) Eos # (Auto) Baso # (Auto) Sodium Potassium Chloride Carbon Dioxide Anion Gap BUN Creatinine Est GFR ( Amer) Est GFR (Non-Af Amer) POC Glucose (mg/dL) 48 L 99 43 L Random Glucose Calcium Total Bilirubin AST ALT Alkaline Phosphatase Troponin I Total Protein Albumin Globulin Albumin/Globulin Ratio 10/22/18 10/22/18 10/22/18 05:46 06:15 06:15 WBC 6.0 RBC 4.20 Hgb 12.5 Hct 36.4 MCV 86.7 MCH 29.7 MCHC 34.3 RDW 14.1 Plt Count 229 MPV Neut % (Auto) Lymph % (Auto) [place] % (Auto) Eos % (Auto) Baso % (Auto) Neut # (Auto) Lymph # (Auto) [place] # (Auto) Eos # (Auto) Baso # (Auto) Sodium 140 Potassium 3.4 L Chloride 94 L Carbon Dioxide 32 H Anion Gap 17 BUN 27 H Creatinine 1.0 Est GFR ( Amer) > 60 Est GFR (Non-Af Amer) 54 POC Glucose (mg/dL) 55 L Random Glucose 160 H Calcium 10.0 Total Bilirubin 0.5 AST 28 ALT 28 Alkaline Phosphatase 67 Troponin I < 0.0120 Total Protein 6.8 Albumin 4.0 Globulin 2.8 Albumin/Globulin Ratio 1.5 10/22/18 06:34 WBC RBC Hgb Hct MCV MCH MCHC RDW Plt Count MPV Neut % (Auto) Lymph % (Auto) [place] % (Auto) Eos % (Auto) Baso % (Auto) Neut # (Auto) Lymph # (Auto) [place] # (Auto) Eos # (Auto) Baso # (Auto) Sodium Potassium Chloride Carbon Dioxide Anion Gap BUN Creatinine Est GFR ( Amer) Est GFR (Non-Af Amer) POC Glucose (mg/dL) 134 H Random Glucose Calcium Total Bilirubin AST ALT Alkaline Phosphatase Troponin I Total Protein Albumin Globulin Albumin/Globulin Ratio Assessment & Plan (1) Syncope Status: Acute - Assessment and Plan (Free Text) Assessment: available diagnostic data reviewed cardiology consulted neurology consulted meds adjusted due to hypoglycemia monitor labs monitor vitals rest of plan as ordered
--- NOTE | 2018-10-22 13:13 | CARD ---
APPROVED REPORT Date of service: 10/21/2018 EKG Measurement Heart [id number] <Conclusion> Normal sinus rhythm Anteroseptal infarct, age undetermined Abnormal ECG
[2018-10-22] MEDS ORDERED: Insulin Detemir 100 Units/ml Inj SC SCH (22:00)
[2018-10-23] MEDS: Insulin Regular 100 units/ml SC SCH ×5 (00:58→22:59)
[2018-10-23 07:14] LABS: HEMOGLOBIN 12.3 g/dL (12.0-16.0); MEAN CELL VOLUME 88.1 fl (81.0-99.0); MEAN CORPUSCULAR HEMOGLOBIN 29.7 pg (27.0-31.0); MEAN CORPUSCULAR HGB CONC 33.6 g/dL (33.0-37.0); RBC 4.15 Mil/uL (3.80-5.20); RED CELL DISTRIBUTION WIDTH 14.2 % (11.5-14.5); WHITE BLOOD COUNT 6.2 K/uL (4.8-10.8)
[2018-10-23 07:35] LABS: ALB/GLOB RATIO 1.4 (1.0-2.1); ALBUMIN 3.8 g/dL (3.5-5.0); CALCIUM 10.1 mg/dL (8.4-10.2)
[2018-10-23] MEDS ORDERED: Apap-Butalbital-Caffeine 325-50-40mg Tab PO PRN (13:52)
--- NOTE | 2018-10-23 14:16 | CP.PCM.CON ---
History of Present Illness - History of Present Illness History of Present Illness: Neurology Consultation Note: Consult requested by Dr. Dale Mrs. Taylor is a 78-year-old woman with a past medical history of s/p CABG, HTN, hypercholesterolemia who presented with complaints of dizziness to the ED that progressed to syncope. Cardiac work-up has thus far been unremarkable. Non-contrast CT scan of the head was unremarkable. The patient is currently asymptomatic and has no complaints. She was initially found to be hypoglycemic. When I spoke with the patient, she did mention that she also had gait instabilit y and felt like the room was spinning, but denied nausea or vomiting. Review of Systems - Constitutional Constitutional: As Per HPI - EENT Eyes: absent: As Per HPI, Blind Spots, Blurred Vision, Change in Vision, Decreased Night Vision, Diplopia, Discharge, Dry Eye, Exophthalmos, Floaters, Irritation, Itchy Eyes, Loss of Peripheral Vision, Pain, Photophobia, Requires Corrective Lenses, Sees Flashes, Spots in Vision, Tunnel Vision, Other Visual Disturbances, Loss of Vision, Other Ears: absent: As Per HPI, Decreased Hearing, Ear Discharge, Ear Pain, Tinnitus, Abnormal Hearing, Disequilibrium, Dizziness, Other Nose/Mouth/Throat: absent: As Per HPI, Epistaxis, Nasal Congestion, Nasal Discharge, Nasal Obstruction, Nasal Trauma, Nose Pain, Post Nasal Drip, Sinus Pain, Sinus Pressure, Bleeding Gums, Change in Voice, Dental Pain, Dry Mouth, Dysphagia, Halitosis, Hoarsness, Lip Swelling, Mouth Lesions, Mouth Pain, Odynophagia, Sore Throat, Throat Swelling, Tongue Swelling, Facial Pain, Neck Pain, Neck Mass, Other - Cardiovascular Cardiovascular: absent: As Per HPI, Acrocyanosis, Chest Pain, Chest Pain at Rest, Chest Pain with Activity, Claudication, Diaphoresis, Dyspnea, Dyspnea on Exertion, Edema, Irregular Heart Rhythm, Pain Radiating to Arm/Neck/Jaw, Leg Edema, Leg Ulcers, Lightheadedness, Orthopnea, Palpitations, Paroxysmal Nocturnal Dyspnea, Pedal Edema, Radiating Pain, Rapid Heart Rate, Slow Heart Rate, Syncope, Other - Respiratory Respiratory: absent: As Per HPI, Cough, Dyspnea, Hemoptysis, Dyspnea on Exertion, Wheezing, Snoring, Stridor, Pain on Inspiration, Chest Congestion, Excessive Mucous Production, Change in Mucous Color, Pain with Coughing, Other - Gastrointestinal Gastrointestinal: absent: As Per HPI, Abdominal Pain, Belching, Bloating, Change in Bowel Habits, Change in Stool Character, Coffee Ground Emesis, Constipation, Cramping, Diarrhea, Dyspepsia, Dysphagia, Early Satiety, Excessive Flatus, Fecal Incontinence, Heartburn, Hematemesis, Hematochezia, Loose Stools, Melena, Nausea, Odynophagia, Temesmus, Vomiting, Other - Genitourinary Genitourinary: absent: As Per HPI, Change in Urinary Stream, Difficulty Urinating, Dysuria, Flank Pain, Hematuria, Pyuria, Nocturia, Urinary Incontinence, Urinary Frequency, Urinary Hesitance, Urinary Urgency, Voiding Freq/Small Amts, Freq UTI, Hx Renal/Bladder Calculi, Hx /Renal Surgery, Bladder Distension, Other - Musculoskeletal Musculoskeletal: absent: As Per HPI, Abnormal Gait, Arthralgias, Atrophy, Back Pain, Deformity, Joint Swelling, Limited Range of Motion, Loss of Height, Muscle Cramps, Muscle Weakness, Myalgias, Neck Pain, Numbness, Radiating Pain into Limb, Stiffness, Tingling, Other - Integumentary Integumentary: absent: As Per HPI, Acne, Alopecia, Bleeding Lesions, Change in Hair, Change in Nails, Change in Pigmentation, Changing Lesions, Dry Skin, Erythema, Furuncle, Hirsutism, Lesions, New Lesions, Non-Healing Lesions, Photosensitivity, Pruritus, Rash, Skin Pain, Skin Ulcer, Sores, Striae, Swelling, Unusual Bruising, Wounds, Jaundice, Other - Neurological Neurological: As Per HPI - Psychiatric Psychiatric: absent: As Per HPI, Abnormal Sleep Pattern, Anhedonia, Anxiety, Auditory Hallucinations, Behavioral Changes, Change in Appetite, Change in Libido, Confusion, Depression, Difficulty Concentrating, Hallucinations, Ho micidal Ideation, Hopelessness, Irritability, Memory Loss, Mood Swings, Panic Attacks, Paranoia, Suicidal Ideation, Visual Hallucinations, Tactile Hallucinations, Other - Endocrine Endocrine: absent: As Per HPI, Change in Body Appearance, Change in Libido, Cold Intolorance, Deepening of Voice, Excessive Sweating, Fatigue, Flushing, Heat Intolorance, Increase in Ring/Shoe/Hat Size, Palpitations, Polydipsia, Polyphagia, Polyuria, Other - Hematologic/Lymphatic Hematologic: absent: As Per HPI, Easy Bleeding, Easy Bruising, Lymphadenopathy, Other Past Patient History - Past Medical History & Family History Past Medical History?: Yes - Past Social History Smoking Status: Never Smoked - CARDIAC Hx Cardiac Disorders: Yes - PULMONARY Hx Respiratory Disorders: Yes - NEUROLOGICAL Hx Neurological Disorder: No - HEENT Hx HEENT Problems: No - RENAL Hx Chronic Kidney Disease: No - ENDOCRINE/METABOLIC Hx Diabetes Mellitus Type 2: Yes (CONTROLLED ON METFORMIN) - HEMATOLOGICAL/ONCOLOGICAL Hx Blood Disorders: No - INTEGUMENTARY Hx Dermatological Problems: No - MUSCULOSKELETAL/RHEUMATOLOGICAL Hx Musculoskeletal Disorders: No Hx Falls: No - GASTROINTESTINAL Hx Gastrointestinal Disorders: No - GENITOURINARY/GYNECOLOGICAL Hx Genitourinary Disorders: No - PSYCHIATRIC Hx Psychophysiologic Disorder: No Hx Substance Use: No - SURGICAL HISTORY Hx Cholecystectomy: Yes Hx Coronary Artery Bypass Graft: Yes - ANESTHESIA Hx Anesthesia: Yes Hx Anesthesia Reactions: No Meds Allergies/Adverse Reactions: Allergies Allergy/AdvReac Type Severity Reaction Status Date / Time iodine Allergy RASH Verified 10/21/18 15:50 - Medications Medications: Current Medications Acetaminophen (Tylenol 325mg Tab) 650 mg PO Q4 PRN PRN Reason: Pain, moderate (4-7) Acetaminophen (Tylenol 325mg Tab) 650 mg PO Q6 PRN PRN Reason: Pain, Mild (1-3) Acetaminophen/Butalbital/Caffeine (Fioricet) 1 tab PO Q4 PRN PRN Reason: Headache Acetaminophen/Codeine Phosphate (Tylenol/Codeine 300 Mg/30 Mg) 1 tab PO Q8 PRN PRN Reason: Pain, moderate (4-7) Aspirin (Aspirin) 325 mg PO DAILY [facility] Last Admin: 10/23/18 09:02 Dose: 325 mg Atorvastatin Calcium (Lipitor) 80 mg PO DAILY [facility] Last Admin: 10/23/18 08:58 Dose: 80 mg Famotidine (Pepcid) 20 mg PO BID [facility] Last Admin: 10/23/18 08:58 Dose: 20 mg Hydrochlorothiazide (Microzide) 12.5 mg PO DAILY [facility] Last Admin: 10/23/18 08:58 Dose: 12.5 mg Insulin Human Regular (Humulin R) 0 units SC [facility]; Protocol Last Admin: 10/23/18 12:40 Dose: 3 units Losartan Potassium (Cozaar) 100 mg PO DAILY [facility] Last Admin: 10/23/18 08:58 Dose: 100 mg Metoprolol Tartrate (Lopressor) 50 mg PO DAILY [facility] Last Admin: 10/23/18 09:04 Dose: 50 mg Morphine Sulfate (Morphine) 2 mg IVP Q6 PRN PRN Reason: Pain, severe (8-10) Last Admin: 10/22/18 20:31 Dose: 2 mg Sitagliptin Phosphate (Januvia) 50 mg PO DAILY [facility] Last Admin: 10/23/18 12:56 Dose: 50 mg Valsartan (Diovan) 320 mg PO DAILY [facility] Physical Exam - Constitutional Appears: Well - Head Exam Head Exam: ATRAUMATIC, NORMAL INSPECTION, NORMOCEPHALIC - Eye Exam Eye Exam: EOMI, Normal appearance, PERRL Pupil Exam: NORMAL ACCOMODATION, PERRL - ENT Exam ENT Exam: Mucous Membranes Moist, Normal Exam - Neck Exam Neck exam: Positive for: Normal Inspection - Respiratory Exam Respiratory Exam: Clear to Auscultation Bilateral, NORMAL BREATHING PATTERN - Cardiovascular Exam Cardiovascular Exam: REGULAR RHYTHM, +S1, +S2 - GI/Abdominal Exam GI & Abdominal Exam: Normal Bowel Sounds, Soft. absent: Tenderness - Rectal Exam Rectal Exam: Deferred - Extremities Exam Extremities exam: Positive for: normal inspection - Back Exam Back exam: NORMAL INSPECTION - Neurological Exam Neurological exam: Alert, CN II-XII Intact, Normal Gait, Oriented x3, Reflexes Normal Additional comments: Coordination intact, no ataxia, no nystagmus noted. - Psychiatric Exam Psychiatric exam: Normal Affect, Normal Mood - Skin Skin Exam: Dry, Intact, Normal Color, Warm Results - Vital Signs Recent Vital Signs: Last Vital Signs Temp 98.4 F 10/23/18 13:00 Pulse 57 L 10/23/18 13:00 Resp 18 10/23/18 13:00 BP 148/75 10/23/18 13:00 Pulse Ox 99 10/23/18 13:00 - Labs Result Diagrams: 10/23/18 06:45 10/23/18 06:45 Labs: Laboratory Results - last 24 hr 10/22/18 10/22/18 10/22/18 06:15 10:31 16:02 WBC RBC Hgb Hct MCV MCH MCHC RDW Plt Count Sodium Potassium Chloride Carbon Dioxide Anion Gap BUN Creatinine Est GFR ( Amer) Est GFR (Non-Af Amer) POC Glucose (mg/dL) 168 H 113 H Random Glucose Hemoglobin A1c 7.5 H Calcium Phosphorus Magnesium Total Bilirubin AST ALT Alkaline Phosphatase Total Protein Albumin Globulin Albumin/Globulin Ratio Triglycerides Cholesterol LDL Cholesterol Direct HDL Cholesterol 10/22/18 10/23/18 10/23/18 22:46 05:45 06:45 WBC 6.2 RBC 4.15 Hgb 12.3 Hct 36.6 MCV 88.1 MCH 29.7 MCHC 33.6 RDW 14.2 Plt Count 217 Sodium Potassium Chloride Carbon Dioxide Anion Gap BUN Creatinine Est GFR ( Amer) Est GFR (Non-Af Amer) POC Glucose (mg/dL) 149 H 147 H Random Glucose Hemoglobin A1c Calcium Phosphorus Magnesium Total Bilirubin AST ALT Alkaline Phosphatase Total Protein Albumin Globulin Albumin/Globulin Ratio Triglycerides Cholesterol LDL Cholesterol Direct HDL Cholesterol 10/23/18 10/23/18 06:45 11:32 WBC RBC Hgb Hct MCV MCH MCHC RDW Plt Count Sodium 139 Potassium 3.7 Chloride 95 L Carbon Dioxide 33 H Anion Gap 15 BUN 26 H Creatinine 1.2 Est GFR ( Amer) 53 Est GFR (Non-Af Amer) 43 POC Glucose (mg/dL) 271 H Random Glucose 149 H Hemoglobin A1c Calcium 10.1 Phosphorus 2.9 Magnesium 1.6 Total Bilirubin 0.5 AST 29 ALT 23 Alkaline Phosphatase 64 Total Protein 6.6 Albumin 3.8 Globulin 2.8 Albumin/Globulin Ratio 1.4 Triglycerides 247 H D Cholesterol 153 LDL Cholesterol Direct 80 HDL Cholesterol 43 Assessment & Plan (1) Syncope Assessment and Plan: Unlikely to be neurologically mediated. No evidence or history of seizure activity. No evidence on exam of vertebro-basilar insufficiency (no ataxia, no dysarthria, no nystagmus, etc). She did explain that there was some vertigo and gait instability yesterday. CTA of the head/neck may be obtained for further evaluation. Otherwise, avoid hypoglycemia or dehydration and continue cardiac work-up. Thank you for this consultation. Status: Acute
--- NOTE | 2018-10-23 15:42 | CP.PCM.PN ---
Subjective - Date & Time of Evaluation Date of Evaluation: 10/23/18 Time of Evaluation: 12:00 - Subjective Subjective: patient seen and examined at bedside. Interim events noted No complaints offered at this time denies cp/sob/fever/chills. available diagnostic data reviewed Objective Vital Signs Stable - Constitutional Appears: Non-toxic, No Acute Distress - Head Exam Head Exam: NORMAL INSPECTION - Eye Exam Eye Exam: Normal appearance - Respiratory Exam Respiratory Exam: NORMAL BREATHING PATTERN - Cardiovascular Exam Cardiovascular Exam: +S1, +S2 - GI/Abdominal Exam GI & Abdominal Exam: Soft - Neurological Exam Neurological Exam: Alert, Awake - Psychiatric Exam Psychiatric exam: Normal Affect, Normal Mood - Skin Skin Exam: Normal Color, Warm Assessment and Plan monitor vitals monitor labs Cont meds Cont tx consultants appreciated input rest of plan as ordered Assessment and Plan (1) Syncope Status: Acute
[2018-10-24] MEDS: Insulin Regular 100 units/ml SC SCH ×4 (08:25→21:40)
--- NOTE | 2018-10-24 13:09 | CP.PCM.PN ---
Subjective - Date & Time of Evaluation Date of Evaluation: 10/24/18 Time of Evaluation: 13:04 - Subjective Subjective: Neurology Follow-Up Note: Mrs. Taylor was evaluated this afternoon at bedside. She admits that her dizziness and unsteadiness have resolved. She states noticing an improvement in after receiving IV hydration. She is eager to be d/c. Denies h/a, dizziness, visual changes, chest pain, palpitations, sob, cough, abd pain, n/v/d. Objective - Vital Signs/Intake and Output Vital Signs (last 24 hours): Temp Pulse Resp BP Pulse Ox 97.8 F 63 20 167/67 H 99 10/24/18 08:27 10/24/18 10:35 10/24/18 08:27 10/24/18 10:35 10/24/18 08:27 - Medications Medications: Current Medications Acetaminophen (Tylenol 325mg Tab) 650 mg PO Q4 PRN PRN Reason: Pain, moderate (4-7) Last Admin: 10/23/18 20:50 Dose: 650 mg Acetaminophen (Tylenol 325mg Tab) 650 mg PO Q6 PRN PRN Reason: Pain, Mild (1-3) Acetaminophen/Butalbital/Caffeine (Fioricet) 1 tab PO Q4 PRN PRN Reason: Headache Acetaminophen/Codeine Phosphate (Tylenol/Codeine 300 Mg/30 Mg) 1 tab PO Q8 PRN PRN Reason: Pain, moderate (4-7) Amlodipine Besylate (Norvasc) 5 mg PO DAILY [facility] Last Admin: 10/24/18 10:35 Dose: 5 mg Aspirin (Aspirin) 325 mg PO DAILY [facility] Last Admin: 10/24/18 08:39 Dose: 325 mg Atorvastatin Calcium (Lipitor) 80 mg PO DAILY [facility] Last Admin: 10/24/18 08:39 Dose: 80 mg Famotidine (Pepcid) 20 mg PO BID [facility] Last Admin: 10/24/18 08:43 Dose: 20 mg Insulin Human Regular (Humulin R) 0 units SC [facility]; Protocol Last Admin: 10/24/18 12:09 Dose: 2 units Losartan Potassium (Cozaar) 100 mg PO DAILY [facility] Last Admin: 10/24/18 08:34 Dose: 100 mg Metoprolol Tartrate (Lopressor) 50 mg PO DAILY [facility] Last Admin: 10/24/18 08:43 Dose: 50 mg Morphine Sulfate (Morphine) 2 mg IVP Q6 PRN PRN Reason: Pain, severe (8-10) Last Admin: 10/22/18 20:31 Dose: 2 mg Sitagliptin Phosphate (Januvia) 50 mg PO DAILY [facility] Last Admin: 10/24/18 08:43 Dose: 50 mg Valsartan (Diovan) 320 mg PO DAILY [facility] - Labs Labs: 10/23/18 06:45 10/23/18 06:45 - Constitutional Appears: Well, Non-toxic, No Acute Distress - Head Exam Head Exam: ATRAUMATIC, NORMAL INSPECTION, NORMOCEPHALIC - Eye Exam Eye Exam: EOMI, Normal appearance, PERRL. absent: Nystagmus Pupil Exam: NORMAL ACCOMODATION, PERRL - ENT Exam ENT Exam: Mucous Membranes Moist - Neck Exam Neck Exam: Full ROM, Normal Inspection - Respiratory Exam Respiratory Exam: NORMAL BREATHING PATTERN - Extremities Exam Extremities Exam: Full ROM. absent: Calf Tenderness, Pedal Edema - Back Exam Back Exam: Full ROM, NORMAL INSPECTION - Neurological Exam Neurological Exam: Alert, Awake, CN II-XII Intact, Normal Gait, Oriented x3, Reflexes Normal Neuro motor strength exam: Left Upper Extremity: 5, Right Upper Extremity: 5, Left Lower Extremity: 5, Right Lower Extremity: 5 Additional comments: Speech clear, fluid Follows all commands Strength and sensation equal and intact No tremors Gait steady - Psychiatric Exam Psychiatric exam: Normal Affect, Normal Mood - Skin Skin Exam: Normal Color Assessment and Plan (1) Syncope Assessment & Plan: Imaging reviewed: -CT Head (10/21/18): No evidence of acute intracranial hemorrhage mass effect or midline shift. -MRA head and Neck done today, results pending--will f/u with results. -ECHO ordered, needs to be done--will f/u with results once completed. -Continue blood sugar control; cardiac workup -Continue ASA -Notify neuro team of any acute changes in pt's condition. Case discussed with Dr. Elizondo Status: Acute
--- NOTE | 2018-10-24 13:45 | MRI ---
Date of service: 10/24/2018 PROCEDURE: Magnetic Resonance Angiography Brain HISTORY: R/O VBI COMPARISON: None available. TECHNIQUE: 3D time of flight MR angiography of the intracranial arteries was performed. Rotating maximum intensity projection images were generated. FINDINGS: INTERNAL CAROTID ARTERIES: Unremarkable. The skull base, petrous, cavernous and supraclinoid segments are bilaterally widely patient. ANTERIOR CEREBRAL ARTERIES: Unremarkable. A1 and A2 segments are widely patent. Smaller distal branches unremarkable, as visualized. MIDDLE CEREBRAL ARTERIES: Unremarkable. M1 and M2 segments are widely patent. Perisylvian branches grossly symmetric. POSTERIOR CIRCULATION: Basilar Artery: Unremarkable. Distal Vertebral Arteries: Unremarkable. Posterior Cerebral Arteries: Unremarkable. Posterior Inferior Cerebellar Arteries: Unremarkable. ANEURYSM/ VASCULAR MALFORMATIONS: None. OTHER FINDINGS: None. IMPRESSION: Unremarkable MR angiography of the brain.
--- NOTE | 2018-10-24 13:48 | MRI ---
Date of service: 10/24/2018 PROCEDURE: MR Angiography of the neck without contrast HISTORY: R/O VBI COMPARISON: None available. TECHNIQUE: 3D [id number] angiography of the neck was performed. Rotating maximum intensity projection images of the cervical carotid and vertebral arteries were generated. The origins of the common carotid arteries were not visualized, which is a limitation inherent to the non-contrast time of flight technique. FINDINGS: RIGHT CAROTID ARTERIES: There is a severe stenosis in the proximal right internal carotid with poststenotic dilatation. LEFT CAROTID ARTERIES: No significant stenosis. VERTEBRAL ARTERIES: Right Vertebral Artery: Normal. Left Vertebral Artery: Normal. OTHER FINDINGS: None. IMPRESSION: There is a severe stenosis in the proximal right internal carotid with poststenotic dilatation.
--- NOTE | 2018-10-25 08:22 | CP.PCM.PN ---
<Annika Potter - Last Filed: 10/25/18 10:42> Subjective - Date & Time of Evaluation Date of Evaluation: 10/25/18 Time of Evaluation: 08:20 - Subjective Subjective: No acute overnight events. Pt seen and evaluated by bedside this AM. Pt has no concerns this AM, wants to go home Denies chest pain, headache, palpitations, dizziness, n/v Objective - Vital Signs/Intake and Output Vital Signs (last 24 hours): Temp Pulse Resp BP Pulse Ox 98.3 F 64 18 176/66 H 99 10/25/18 08:05 10/25/18 08:05 10/25/18 08:05 10/25/18 08:05 10/25/18 08:05 - Medications Medications: Current Medications Acetaminophen (Tylenol 325mg Tab) 650 mg PO Q4 PRN PRN Reason: Pain, moderate (4-7) Last Admin: 10/23/18 20:50 Dose: 650 mg Acetaminophen (Tylenol 325mg Tab) 650 mg PO Q6 PRN PRN Reason: Pain, Mild (1-3) Acetaminophen/Butalbital/Caffeine (Fioricet) 1 tab PO Q4 PRN PRN Reason: Headache Amlodipine Besylate (Norvasc) 10 mg PO DAILY [facility] Aspirin (Aspirin) 325 mg PO DAILY [facility] Last Admin: 10/24/18 08:39 Dose: 325 mg Atorvastatin Calcium (Lipitor) 80 mg PO DAILY [facility] Last Admin: 10/24/18 08:39 Dose: 80 mg Famotidine (Pepcid) 20 mg PO BID [facility] Last Admin: 10/24/18 17:18 Dose: 20 mg Insulin Human Regular (Humulin R) 0 units SC [facility]; Protocol Last Admin: 10/24/18 21:40 Dose: Not Given Losartan Potassium (Cozaar) 100 mg PO DAILY [facility] Last Admin: 10/24/18 08:34 Dose: 100 mg Metoprolol Tartrate (Lopressor) 50 mg PO DAILY [facility] Last Admin: 10/24/18 08:43 Dose: 50 mg Morphine Sulfate (Morphine) 2 mg IVP Q6 PRN PRN Reason: Pain, severe (8-10) Last Admin: 10/22/18 20:31 Dose: 2 mg Sitagliptin Phosphate (Januvia) 50 mg PO DAILY [facility] Last Admin: 10/24/18 08:43 Dose: 50 mg Valsartan (Diovan) 320 mg PO DAILY [facility] - Labs Labs: 10/23/18 06:45 10/23/18 06:45 - Constitutional Appears: No Acute Distress - Head Exam Head Exam: NORMAL INSPECTION - Eye Exam Eye Exam: Normal appearance - ENT Exam ENT Exam: Mucous Membranes Moist - Respiratory Exam Respiratory Exam: Clear to Ausculation Bilateral. absent: Wheezes - Cardiovascular Exam Cardiovascular Exam: REGULAR RHYTHM, +S1, +S2 - GI/Abdominal Exam GI & Abdominal Exam: Soft, Normal Bowel Sounds. absent: Tenderness - Neurological Exam Neurological Exam: Alert, Awake, Oriented x3 Assessment and Plan (1) Carotid stenosis, right Status: Acute (2) Syncope Status: Acute (3) DM2 (diabetes mellitus, type 2) Status: Chronic (4) HTN (hypertension) Status: Chronic - Assessment and Plan (Free Text) Assessment: Assessment/Plan: 78 yo female with PMHx of DM, CAD s/p CABG, HTN, HLD is admitted for syncope. Syncope -acute, improving -likely 2/2 to severe stenosis in proximal R internal carotid (MRI neck) -CT head/MR head no acute intracranial findings -neuro on board; recs neurointervention -neurointervention consulted follow up recs -cardiology on board, no new recs HTN/CAD -uncontrolled, chronic -cardiology on board; echo pending -c/w current med as ordered, amlodipine changes from 5mg to 10mg today NIDDM -chronic -c/w home meds -insulin sliding scale DVT prolx -Lovenox SC Plan as ordered <Ricardo Dale - Last Filed: 10/25/18 17:14> Objective - Vital Signs/Intake and Output Vital Signs (last 24 hours): Temp Pulse Resp BP Pulse Ox 98.2 F 64 16 176/72 H 99 10/25/18 16:28 10/25/18 16:28 10/25/18 16:28 10/25/18 16:28 10/25/18 16:28 - Medications Medications: Current Medications Acetaminophen (Tylenol 325mg Tab) 650 mg PO Q4 PRN PRN Reason: Pain, moderate (4-7) Last Admin: 10/23/18 20:50 Dose: 650 mg Acetaminophen (Tylenol 325mg Tab) 650 mg PO Q6 PRN PRN Reason: Pain, Mild (1-3) Acetaminophen/Butalbital/Caffeine (Fioricet) 1 tab PO Q4 PRN PRN Reason: Headache Amlodipine Besylate (Norvasc) 10 mg PO DAILY [facility] Last Admin: 10/25/18 11:26 Dose: 10 mg Aspirin (Aspirin) 325 mg PO DAILY [facility] Last Admin: 10/25/18 11:15 Dose: 325 mg Atorvastatin Calcium (Lipitor) 80 mg PO DAILY [facility] Last Admin: 10/25/18 11:24 Dose: 80 mg Famotidine (Pepcid) 20 mg PO BID [facility] Last Admin: 10/25/18 11:26 Dose: 20 mg Insulin Human Regular (Humulin R) 0 units SC [facility]; Protocol Last Admin: 10/25/18 12:05 Dose: 4 units Losartan Potassium (Cozaar) 100 mg PO DAILY [facility] Last Admin: 10/25/18 11:15 Dose: 100 mg Metoprolol Tartrate (Lopressor) 50 mg PO DAILY [facility] Last Admin: 10/25/18 11:25 Dose: 50 mg Morphine Sulfate (Morphine) 2 mg IVP Q6 PRN PRN Reason: Pain, severe (8-10) Last Admin: 10/22/18 20:31 Dose: 2 mg Sitagliptin Phosphate (Januvia) 50 mg PO DAILY [facility] Last Admin: 10/25/18 08:30 Dose: 50 mg Valsartan (Diovan) 320 mg PO DAILY [facility] - Labs Labs: 10/23/18 06:45 10/23/18 06:45 Assessment and Plan (1) Syncope Status: Acute Attending/Attestation - Attestation I have personally seen and examined this patient.: Yes I have fully participated in the care of the patient.: Yes I have reviewed all pertinent clinical information, including history, physical exam and plan: Yes
[2018-10-25] MEDS: Insulin Regular 100 units/ml SC SCH ×2 (08:30→12:05)
--- NOTE | 2018-10-25 12:59 | CARD ---
APPROVED REPORT Date of service: 10/25/2018 EXAM: Two-dimensional and M-mode echocardiogram with Doppler and color Doppler. Other Information Quality : GoodRhythm : NSR INDICATION Syncope Surgery/Intervention CABG: Date: 2017 2D DIMENSIONS IVSd0.87 (0.7-1.1cm)LVDd4.40 (3.9-5.9cm) LVOT Diameter1.91 (1.8-2.4cm)PWd0.80 (0.7-1.1cm) IVSs1.51 (0.8-1.2cm)LVDs2.65 (2.5-4.0cm) FS (%) 39.7 %PWs1.52 (0.8-1.2cm) M-Mode DIMENSIONS Left Atrium (MM)4.12 (2.5-4.0cm)IVSd1.21 (0.7-1.1cm) Aortic Root2.47 (2.2-3.7cm)LVDd3.97 (4.0-5.6cm) Aortic Cusp Exc.1.47 (1.5-2.0cm)PWd1.32 (0.7-1.1cm) IVSs1.26 cmFS (%) 47 % LVDs2.09 (2.0-3.8cm)PWs1.88 cm Aortic Valve AoV Peak Zdtjknhk824.6cm/sAoV VTI37.8cmAO Peak GR.12mmHg LVOT Peak Yfxhdqvf567.9cm/sLVOT VTI24.92cmAO Mean GR.7mmHg SEVERO (VMAX)1.23cj4LAJ (VTI)1.17cm2 Mitral Valve MV E Dhaojqwk46.8cm/sMV DECEL [id number] A Yqhkdwhe46.7cm/s MV THV07cwY/A ratio0.8MVA (PHT)3.03cm2 TDI Lateral E' Peak V11.90cm/sMedial E' Peak V7.25cm/sE/Lateral E'6.4 E/Medial E'10.5 Tricuspid Valve TR Peak Faaqvdfx679mv/sRAP FGZGOHZU14ufLpPN Peak Gr.30mmHg [id number] LEFT VENTRICLE The left ventricle is normal size. There is normal left ventricular wall thickness. The left ventricular systolic function is normal. The estimated ejection fraction is 55-60% No regional wall motion abnormalities noted.. Transmitral Doppler flow pattern is Grade I-abnormal relaxation pattern. No left ventricle thrombus noted on this study. There is no ventricular septal defect visualized. There is no left ventricular aneurysm. There is no mass noted in the left ventricle. RIGHT VENTRICLE The right ventricle is normal size. There is normal right ventricular wall thickness. The right ventricular systolic function is normal. ATRIA The left atrium is borderline dilated. The right atrium size is normal. The interatrial septum is intact with no evidence for an atrial septal defect. AORTIC VALVE The aortic valve is normal in structure. No aortic regurgitation is present. There is no aortic valvular stenosis. There is no aortic valvular vegetation. MITRAL VALVE The mitral valve is normal in structure. There is no evidence of mitral valve prolapse. There is no mitral valve stenosis. There is mild mitral valve regurgitation noted. TRICUSPID VALVE The tricuspid valve is normal in structure. There is mild tricuspid valve regurgitation noted. RVSP is calculated at 35 mm Hg. There is no tricuspid valve prolapse or vegetation. There is no tricuspid valve stenosis. PULMONIC VALVE The pulmonary valve is normal in structure. There is no pulmonic valvular regurgitation. There is no pulmonic valvular stenosis. GREAT VESSELS The aortic root is normal in size. The ascending aorta is normal in size. The pulmonary artery is normal. The IVC is normal in size and collapses >50% with inspiration. PERICARDIAL EFFUSION There is no pericardial effusion. There is no pleural effusion. <Conclusion> The estimated ejection fraction is 55-60% Transmitral Doppler flow pattern is Grade I-abnormal relaxation pattern. The left atrium is borderline dilated. There is mild mitral valve regurgitation noted. There is mild tricuspid valve regurgitation noted. RVSP is calculated at 35 mm Hg.
[2018-10-25 16:29] VITALS: BP 176/72; PULSE 64; RESP 16; TEMP 98.2; O2SAT 99
--- NOTE | 2018-10-25 16:37 | CP.PCM.CON ---
History of Present Illness - History of Present Illness History of Present Illness: this is a 78-year-old female the past medical history of cabbage times x 4 vessels back in November 2017. She has a history of two prior heart attacks. She presented to the emergency room in [place] with an episode of severe vertigo which she describes as difficulty with balance followed followed by syncope we are she fell on her couch and four hours went by she awoke. She claims that this was due to low blood sugar her initial blood sugar was 56, she claims she was improved after getting IV fluids. Neurological workup was performed during the workup and MRI, MRA of the head and neck was performed demonstrating a high-grade stenosis of the right internal carotid artery under the degree of stenosis estimated on the MR a is approximately 80% The patient is in and asymptomatic during hospitalization The patient denies any numbness or weakness or speech difficulties or episodes of the above. The patient has a past medical history of hypertension and hypercholesterolemia as well as diabetes mellitus hemoglobin A1c on admission was 7.5. 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) - HEMATOLOGICAL/ONCOLOGICAL Hx Blood Disorders: No - INTEGUMENTARY Hx Dermatological Problems: No - MUSCULOSKELETAL/RHEUMATOLOGICAL Hx Musculoskeletal Disorders: No Hx Falls: No - GASTROINTESTINAL Hx Gastrointestinal Disorders: No - GENITOURINARY/GYNECOLOGICAL Hx Genitourinary Disorders: No - PSYCHIATRIC Hx Psychophysiologic Disorder: No Hx Substance Use: No - SURGICAL HISTORY Hx Cholecystectomy: Yes Hx Coronary Artery Bypass Graft: Yes - ANESTHESIA Hx Anesthesia: Yes Hx Anesthesia Reactions: No Meds Home Medications: Home Medication List Medication Instructions Recorded Confirmed Type Aspirin 325 mg PO DAILY #30 tab 10/25/18 Rx Atorvastatin [Lipitor] 80 mg PO DAILY #30 tab 10/25/18 Rx Famotidine [Pepcid] 20 mg PO BID #60 tab 10/25/18 Rx Metoprolol Tartrate [Lopressor] 50 mg PO DAILY #30 tab 10/25/18 Rx amLODIPine [Norvasc] 10 mg PO DAILY #30 tab 10/25/18 Rx Allergies/Adverse Reactions: Allergies Allergy/AdvReac Type Severity Reaction Status Date / Time iodine Allergy RASH Verified 10/21/18 15:50 - Medications Medications: Current Medications Acetaminophen (Tylenol 325mg Tab) 650 mg PO Q4 PRN PRN Reason: Pain, moderate (4-7) Last Admin: 10/23/18 20:50 Dose: 650 mg Acetaminophen (Tylenol 325mg Tab) 650 mg PO Q6 PRN PRN Reason: Pain, Mild (1-3) Acetaminophen/Butalbital/Caffeine (Fioricet) 1 tab PO Q4 PRN PRN Reason: Headache Amlodipine Besylate (Norvasc) 10 mg PO DAILY [facility] Last Admin: 10/25/18 11:26 Dose: 10 mg Aspirin (Aspirin) 325 mg PO DAILY [facility] Last Admin: 10/25/18 11:15 Dose: 325 mg Atorvastatin Calcium (Lipitor) 80 mg PO DAILY [facility] Last Admin: 10/25/18 11:24 Dose: 80 mg Famotidine (Pepcid) 20 mg PO BID [facility] Last Admin: 10/25/18 11:26 Dose: 20 mg Insulin Human Regular (Humulin R) 0 units [facility]; Protocol Last Admin: 10/25/18 12:05 Dose: 4 units Losartan Potassium (Cozaar) 100 mg PO DAILY [facility] Last Admin: 10/25/18 11:15 Dose: 100 mg Metoprolol Tartrate (Lopressor) 50 mg PO DAILY [facility] Last Admin: 10/25/18 11:25 Dose: 50 mg Morphine Sulfate (Morphine) 2 mg IVP Q6 PRN PRN Reason: Pain, severe (8-10) Last Admin: 10/22/18 20:31 Dose: 2 mg Sitagliptin Phosphate (Januvia) 50 mg PO DAILY [facility] Last Admin: 10/25/18 08:30 Dose: 50 mg Valsartan (Diovan) 320 mg PO DAILY [facility] Physical Exam - Head Exam Head Exam: ATRAUMATIC, NORMAL INSPECTION, NORMOCEPHALIC - Respiratory Exam Respiratory Exam: NORMAL BREATHING PATTERN - Cardiovascular Exam Cardiovascular Exam: REGULAR RHYTHM - GI/Abdominal Exam GI & Abdominal Exam: Normal Bowel Sounds - Neurological Exam Neurological exam: Normal Gait, Oriented x3, Reflexes Normal - Expanded Neurological Exam Expanded Patient oriented to: person, place, time Cranial nerves: EOM's Intact: Normal, Facial Palsey w/Forehead Movement: Normal, Facial Sensation: Normal, Gag Reflex: Normal, Nystagmus: Normal Ataxia: No Cerebellar Function: Finger to Nose: Normal, Heel to Greene: Normal Upper motor neuron: Babinski Sign: Normal, Charles Neglect: Normal, Pronator Drift: Normal, Sensory Extinction: Normal Results - Vital Signs Recent Vital Signs: Last Vital Signs Temp 97.4 F L 10/25/18 12:22 Pulse 84 10/25/18 12:22 Resp 20 10/25/18 12:22 BP 209/62 H 10/25/18 12:22 Pulse Ox 100 10/25/18 12:22 - Labs Result Diagrams: 10/23/18 06:45 10/23/18 06:45 Labs: Laboratory Results - last 24 hr 10/24/18 10/24/18 10/25/18 16:07 21:25 05:20 POC Glucose (mg/dL) 168 H 166 H 170 H 10/25/18 10/25/18 10/25/18 11:59 12:04 16:00 POC Glucose (mg/dL) 336 H 322 H 190 H - Impressions Impression: review the patient's MRI/MRA this demonstrates that there is a high grade stenosis of the origin of the right internal carotid artery estimated at 80% using NASCET criteria. The intracranial circulation is within normal limits. There is a mild stenosis of the right M1 seven of the middle cerebral artery. The MRI of the brain does not demonstrate an acute infarct. The patient does have a documented low blood sugar that was treated and she's improve without further episodes. I believe the patient can go home on aspirin. I discussed with the patient in detail the risk of carotid stenosis and the risk of future stroke. She wants to go home at this time and make a decision about the treatment options which included either endovascular treatment was stent or medical management or open carotid endarterectomy. How follow-up with her in the office at which point she can make a appropriately defined decision about treatment. There is no reason for to stay in the hospitalfor this at this time I also talked to the patient in detail about of questionable algae to iodine she stated that she had a diagnostic radiologic study with radiographic contrast for which she felt hot and almost fainted she denies ever having a rash due to contrast agent Assessment & Plan - Assessment and Plan (Free Text) Assessment: hypoglycemia probable cause of the patient's gait instability and episodes of syncope. Right internal carotid artery stenosis high grade. The patient and the workup is outpatient and can decide on treatment as an outpatient. Continue aspirin and medical management of hypertension and diabetes. Thank you for the ability to see and evaluate the patient. - Date & Time Date: 10/25/18 Time: 15:00
== END 2018-10-25 17:50 | disposition home or self-care (01) | DRG 68 ==
LOC: H.ER 15:27 → H.ERHOLD 18:25 → H.TEL 21:42 → OBSVTOIN 10-23 12:39
PROVIDERS: ADMIT Family Medicine; ATTEND Family Medicine
DX: I65.21 Occlusion and stenosis of right carotid artery (principal); R55 Syncope and collapse; E11.649 Type 2 diabetes mellitus with hypoglycemia without coma; I25.10 Atherosclerotic heart disease of native coronary artery without angina pectoris; R26.89 Other abnormalities of gait and mobility; I10 Essential (primary) hypertension; E78.5 Hyperlipidemia, unspecified; E78.00 Pure hypercholesterolemia, unspecified; I25.2 Old myocardial infarction; Z95.1 Presence of aortocoronary bypass graft; Z79.4 Long term (current) use of insulin; Z79.84 Long term (current) use of oral hypoglycemic drugs; Z79.82 Long term (current) use of aspirin; Z91.041 Radiographic dye allergy status